=== PATIENT | male | born 1995 | race Asian ===

== ENCOUNTER 2020-02-08 15:29 | Emergency (ER) | payer MEDICAID ==
[~2020-02-08] VITALS: Ht 170.2 cm; Wt 58.9 kg
[2020-02-08] MEDS ORDERED: IBUPROFEN 600MG TABLET PO ONE (17:00)
[2020-02-08 17:50] VITALS: BP 122/86
== END 2020-02-08 17:51 | disposition home or self-care (01) ==
LOC: ER 15:29
DX: H60.91 Unspecified otitis externa, right ear (principal)
CPT/HCPCS: 99283